=== PATIENT | female | born 1980 | race Caucasian/White ===

== ENCOUNTER 2021-08-05 08:28 | Outpatient (REF) | payer OTHER, SELFPAY ==
[2021-08-05 09:12] LABS: MANUAL DIFF FLAG NO
[2021-08-05 09:30] LABS: Basophils Percent Auto 0.6 % (0-2); Eosinophils Absolute Auto 0.2 X10*3/uL (0.0-0.4); Eosinophils Percent Auto 2.4 % (0-4); Hematocrit 42.1 % (37.0-47.0); Hemoglobin 13.3 g/dl (12.0-16.0); Imm Gran Abs Auto 0.02 X10*3/uL (0.00-0.03); Imm Gran Pct Auto 0.3 % (0.0-0.4); Lymphocytes Absolute Auto 2.4 X10*3/uL (1.2-4.9); Lymphocytes Percent Auto 34.7 % (20-40); Mean Corpuscular HGB Conc 31.6 g/dl (31.0-35.0); Mean Corpuscular Hemoglobin 28.7 pg (27.0-33.0); Mean Corpuscular Volume 90.9 fL (80.0-98.0); Monocytes Absolute Auto 0.4 X10*3/uL (0.1-1.2); Monocytes Percent Auto 5.1 % (2-11); Neutrophils Percent Auto 56.9 % (45-73); Platelet Count 284 X10*3/uL (160-400); Red Blood Count 4.63 X10*6/uL (4.20-5.50); Red Cell Distribution Width 13.4 % (11.0-16.0)
[2021-08-05 09:57] LABS: Alanine Aminotransferase 20 U/L (0-31); Aspartate Amino Transferase 18 U/L (5-31)
[2021-08-05 10:17] LABS: Ferritin 37 ng/mL (10-122)
[2021-08-05 10:24] LABS: Erythrocyte Sedimentation Rate 7 MM/HR (0-20)
[2021-08-05 10:46] LABS: Appearance Urine HAZY; Color Urine YELLOW; Glucose Urine UA NEG (NEG); Leukocyte Esterase Urine 3+ (NEG); Nitrite Urine NEG (NEG); Urine Blood 2+ (NEG); Urine Ketones NEG (NEG); Urine Protein NEG (NEG-TRACE)
[2021-08-05 11:22] LABS: Bacteria Urine 2+ /LPF; Squamous Epithelial Cell Urine 2+ /LPF
[2021-08-07 05:02] LABS: Lyme Abs Screen <0.90 index
[2021-08-08 15:03] LABS: Anti Nuclear Antibody Screen NEGATIVE (NEGATIVE)
[2021-08-08 19:06] LABS: Complement C3 154 mg/dL (83-193)
[2021-08-09 13:25] LABS: Neutrophil Cyto Ab Screen NEGATIVE (NEGATIVE)
[2021-08-10 13:31] LABS: Anti DNA DS Antibody 1 IU/mL; Antibody to SS-A Antigen <1.0 NEG AI (<1.0 NEG); Antibody to SS-B Antigen <1.0 NEG AI (<1.0 NEG)
[2021-08-11 10:36] LABS: IgA 154 mg/dL (47-310); IgG 977 mg/dL (600-1640); IgM 154 mg/dL (50-300)
== END 2021-08-05 08:29 | disposition home or self-care (01) ==
LOC: HO.LAB 08:28
PROVIDERS: PCP Family Medicine; Visit Provider Family Medicine
DX: L50.8 Other urticaria (principal)
CPT/HCPCS: 36415; 81001; 82595; 82728; 82784; 84450; 84460; 85025; 85652; 86036; 86037; 86038; 86039; 86160; 86225; 86235; 86334; 86617; 86618

== ENCOUNTER 2021-08-19 08:04 | Outpatient (REF) | payer OTHER, SELFPAY ==
[2021-08-23 19:26] LABS: Cryocrit None Detected; Cryoglobulin, Qual Negative (Negative)
== END 2021-08-19 08:05 | disposition home or self-care (01) ==
LOC: HO.LAB 08:04
PROVIDERS: PCP Family Medicine; Visit Provider Family Medicine
DX: L50.9 Urticaria, unspecified (principal)
CPT/HCPCS: 36415; 82595

== ENCOUNTER 2023-02-23 10:06 | Outpatient (REF) | payer OTHER, SELFPAY ==
--- NOTE | ~2023-02-23 | US_ITS ---
EXAMINATION: US THYROID CLINICAL INFORMATION: Thyromegaly COMPARISON: None available. TECHNIQUE: Linear transducer grayscale and color Doppler examination with attention to the region of the thyroid. FINDINGS: SIZE: Measurements of the thyroid lobes and nodules are given in sagittal, anteroposterior and transverse dimensions respectively. Right Thyroid Lobe: 5.3 x 1.3 x 2.2 cm, volume 8.4 mL. Parenchyma: The gland echotexture is homogeneous. Thyroid vascularity is increased. Left Thyroid Lobe: 5.4 x 1.5 x 2.5 cm, volume 10.1 mL. Parenchyma: The gland echotexture is homogeneous. Thyroid vascularity is increased. Isthmus: 0.41 cm in maximum AP dimension. Estimated total number of nodules greater than or equal to 1 cm: 1. Carpenter Inspector nodules are described as follows: 1. Location: Right inferior. Size: 0.7 x 0.5 x 0.4 cm, volume 0.06 mL. Nodule characteristics: Composition: Spongiform (0). Echogenicity: Anechoic (0). Shape: Not taller than wide (0). Margins: Smooth (0). Echogenic Foci: None (0). ACR TI-RADS total points: 0 ACR TI-RADS category: 1 2. Location: Left mid. Size: 1.8 x 0.84 x 1.4 cm, volume 1.1 mL. Nodule characteristics: Composition: Spongiform (0). Echogenicity: Anechoic (0). Shape: Not taller than wide (0). Margins: Smooth (0). Echogenic Foci: None (0). ACR TI-RADS total points: 0 ACR TI-RADS category: 1 NODES: No lymphadenopathy is seen in the tissue surrounding the thyroid gland. US/US thyroid IMPRESSION: 1. Bilateral thyroid nodules are seen, as detailed. 2. There is heterogeneous thyroid echotexture, which can be associated with thyroiditis. 3. There is a mild goiter. 4. Recommend continued thyroid ultrasound surveillance. ACR TI-RADS RECOMMENDATION REFERENCE: Ultrasound-guided fine-needle aspiration, followup ultrasound, no further follow up. * TR1 (0 point) and TR2 (2 points): No FNA or follow up. * TR3 (3 points): FNA if more than or equal to 2.5 cm in maximum dimension, followup ultrasound in 1, 3 and 5 years if 1.5 to 2.4 cm in maximum dimension. * TR4 (4-6 points): FNA if more than or equal to 1.5 cm in maximum dimension, followup ultrasound in 1, 2, 3 and 5 years if 1 to 1.4 cm in maximum dimension. * TR5 (more than or equal to 7 points): FNA if more than or equal to 1 cm in maximum dimension, followup ultrasound every year for 5 years if 0.5 to 0.9 cm in maximum dimension. * TR3, TR4 or TR5 nodules that are below the size threshold for followup receive no follow up.
== END 2023-02-23 10:07 | disposition home or self-care (01) ==
LOC: HO.HMGCX 10:06
PROVIDERS: PCP Family Medicine; Visit Provider Family Medicine
DX: E07.9 Disorder of thyroid, unspecified (principal)
CPT/HCPCS: 76536

== ENCOUNTER 2023-07-20 08:55 | Outpatient (REF) | payer OTHER, SELFPAY ==
--- NOTE | ~2023-07-20 | XR_ITS ---
EXAMINATION: CERVICAL SPINE 5 VIEWS CLINICAL INFORMATION: Right cervical pain radiating down the right arm. COMPARISON: None. TECHNIQUE: Frontal, odontoid, bilateral oblique and lateral views of the cervical spine are obtained. FINDINGS: Vertebral body heights and alignment are normal. The disc spaces are well-maintained. No acute fracture or spondylolisthesis is seen. The posterior elements are intact. The bilateral neural foramina are patent. Note is made that the left oblique view is somewhat over rotated. There is no prevertebral soft tissue swelling. The dens and C7-T1 interface are normal. XR/XR cervical spine 4V IMPRESSION: Negative examination.
== END 2023-07-20 08:56 | disposition home or self-care (01) ==
LOC: HO.XRAY 08:55
PROVIDERS: PCP Family Medicine; Visit Provider Family Medicine
DX: M54.2 Cervicalgia (principal)
CPT/HCPCS: 72050

== ENCOUNTER 2024-02-29 09:46 | Outpatient (REF) | payer OTHER, SELFPAY ==
--- NOTE | ~2024-02-29 | US_ITS ---
EXAMINATION: US THYROID CLINICAL INFORMATION: 1 year follow-up of multinodular goiter. COMPARISON: Ultrasound soft tissue head/neck thyroid dated 02/23/2023. TECHNIQUE: Linear transducer grayscale and color Doppler examination with attention to the region of the thyroid. FINDINGS: SIZE: Measurements of the thyroid lobes and nodules are given in sagittal, anteroposterior and transverse dimensions respectively. Right Thyroid Lobe: 6.0 x 1.1 x 2.1 cm, volume 7.3 mL. Previously 5.3 x 1.3 x 2.2 cm, volume 8.4 mL. Parenchyma: The gland echotexture is homogeneous. Thyroid vascularity is normal. Left Thyroid Lobe: 5.5 x 1.3 x 2.5 cm, volume 9.4 mL. Previously 5.4 x 1.5 x 2.5 cm, volume 10.1 mL. Parenchyma: The gland echotexture is homogeneous. Thyroid vascularity is normal. Isthmus: 0.3 cm in maximum AP dimension. Previously 0.4 cm. Estimated total number of nodules greater than or equal to 1 cm: 1. Digital Analyst nodules are described as follows: 1. Location: Right inferior. Size: 0.6 x 0.4 x 0.4 cm, volume 0.06 mL. Previously: 0.7 x 0.5 x 0.4 cm, volume 0.06 mL. Nodule characteristics: Composition: Solid/almost completely solid (2). Echogenicity: Hypoechoic (2). Shape: Not taller than wide (0). Margins: Smooth (0). Echogenic Foci: None (0). ACR TI-RADS total points: 4 ACR TI-RADS category: 4 Significant change in size (>/= 20% in 2 dimensions and minimal increase of 2 mm or 50% or greater increase in volume): No Change in features: Not with accounting for differences in interobserver variability, as imaging findings appear similar to prior. 2. Location: Left mid inferior. Size: 1.8 x 0.9 x 1.3 cm, volume 1.1 mL. Previously: 1.8 x 0.8 x 1.4 cm, volume 1.1 mL. Nodule characteristics: Composition: Spongiform (0). ACR TI-RADS total points: 0 ACR TI-RADS category: 1 Significant change in size (>/= 20% in 2 dimensions and minimal increase of 2 mm or 50% or greater increase in volume): No Change in features: No NODES: No lymphadenopathy is seen in the tissue surrounding the thyroid gland. US/US thyroid IMPRESSION: Few thyroid nodules as detailed above which do not meet criteria for follow-up.. ACR TI-RADS RECOMMENDATION REFERENCE: Ultrasound-guided fine-needle aspiration, follow up ultrasound, no further followup. * TR1 (0 point) and TR2 (2 points): No FNA or followup * TR3 (3 points): FNA if more than or equal to 2.5 cm in maximum dimension, follow up ultrasound in 1, 3 and 5 years if 1.5 to 2.4 cm in maximum dimension. * TR4 (4-6 points): FNA if more than or equal to 1.5 cm in maximum dimension, follow up ultrasound in 1, 2, 3 and 5 years if 1 to 1.4 cm in maximum dimension. * TR5 (more than or equal to 7 points): FNA if more than or equal to 1 cm in maximum dimension, follow up ultrasound every year for 5 years if 0.5 to 0.9 cm in maximum dimension. * TR3, TR4 or TR5 nodules that are below the size threshold for follow up receive no followup. Electronically signed by: Amparo Leyva MD 03/13/2024 05:18 PM EDT
== END 2024-02-29 09:47 | disposition home or self-care (01) ==
LOC: HO.HMGCX 09:46
PROVIDERS: PCP Family Medicine; Visit Provider Family Medicine
DX: E04.2 Nontoxic multinodular goiter (principal)
CPT/HCPCS: 76536

== ENCOUNTER 2024-07-18 08:21 | Outpatient (REF) | payer OTHER, SELFPAY ==
[2024-07-18 08:35] LABS: MANUAL DIFF FLAG NO
[2024-07-18 08:55] LABS: Basophils Absolute Auto 0.1 X10*3/uL (0.0-0.2); Basophils Percent Auto 0.9 % (0-2); Eosinophils Absolute Auto 0.3 X10*3/uL (0.0-0.4); Eosinophils Percent Auto 4.6 % (0-4); Hematocrit 39.9 % (37.0-47.0); Imm Gran Abs Auto 0.02 X10*3/uL (0.00-0.03); Imm Gran Pct Auto 0.3 % (0.0-0.4); Lymphocytes Absolute Auto 1.9 X10*3/uL (1.2-4.9); Lymphocytes Percent Auto 27.8 % (20-40); Mean Corpuscular HGB Conc 32.6 g/dl (31.0-35.0); Mean Corpuscular Hemoglobin 28.7 pg (27.0-33.0); Mean Corpuscular Volume 88.1 fL (80.0-98.0); Mean Platelet Volume 10.1 fL (9.4-12.3); Monocytes Absolute Auto 0.4 X10*3/uL (0.1-1.2); Monocytes Percent Auto 6.2 % (2-11); Neutrophils Absolute Auto 4.1 x10*3/uL (2.0-8.3); Neutrophils Percent Auto 60.2 % (45-73); Platelet Count 237 X10*3/uL (160-400); Red Blood Count 4.53 X10*6/uL (4.20-5.50); Red Cell Distribution Width 13.2 % (11.0-16.0); White Blood Count 6.8 X10*3/uL (4.8-10.8)
[2024-07-18 09:42] LABS: Alanine Aminotransferase 24 U/L (0-31); Albumin Level 4.1 g/dL (3.5-5.0); Alkaline Phosphatase 54 U/L (39-117); Anion Gap 9 (12-20); Aspartate Amino Transferase 30 U/L (5-31); Bilirubin Total 0.5 mg/dL (0.0-1.0); Blood Urea Nitrogen 13 mg/dL (9-16); Calcium 9.2 mg/dL (8.4-10.2); Carbon Dioxide 28 mmol/L (22-29); Chloride 108 mmol/L (96-108); Cholesterol 161 mg/dL (<200); Estimated Glomerular Filt Rate > 60; Glucose Fasting 92 mg/dL (60-99); HDL Cholesterol 36 mg/dL (>40); LDL Cholesterol Calculated 96 mg/dL (<100); Potassium 4.1 mmol/L (3.3-5.1); Sodium 141 mmol/L (135-145); Total Protein 7.1 g/dL (6.5-8.0); Triglycerides 149 mg/dL (<150)
[2024-07-18 09:56] LABS: Thyroid Stimulating Hormone 1.05 uIU/mL (0.32-4.0)
== END 2024-07-18 08:22 | disposition home or self-care (01) ==
LOC: HO.LAB 08:21
PROVIDERS: PCP Family Medicine; Visit Provider Family Medicine
DX: E04.2 Nontoxic multinodular goiter (principal); Z82.49 Family history of ischemic heart disease and other diseases of the circulatory system; Z13.6 Encounter for screening for cardiovascular disorders
CPT/HCPCS: 36415; 80053; 80061; 84443; 85025

== ENCOUNTER 2025-05-08 10:54 | Outpatient (AMB) | payer OTHER, SELFPAY ==
--- NOTE | 2025-05-08 07:54 | MHC.PC.OV ---
Vital Signs 05/08/25 11:12 Height 5 ft 6.65 in Weight 93.894 kg BMI 32.8 BP 108/78 Blood Pressure Location Lt brachial Position Sitting Pulse 85 Pulse Source Pulse Oximeter Temp 98.7 F Temp Source Temporal Artery Scan Pulse Oximetry (%) 97 Oxygen Delivery Method Room Air Intake Visit Reasons: 6 MO F/UP - GINNY PT Integrity Consultant Required: No Accompanied by: Self / Same As Patient Allergies codeine (CODEINE) Allergy (Unknown, Verified 05/08/25 11:01) UNKNOWN moderna 3rd booster Allergy (Severe, Uncoded 05/08/25 11:08) Hives Codeine Phosphate Allergy (Unknown, Uncoded 05/01/16 00:00) nausea and vomiting vitamin Allergy (Unknown, Uncoded 05/01/16 00:00) heart palpitations Medication List - Last Reconciled 05/08/25 by BRYAN Bobby cetirizine (Zyrtec) 10 mg PO DAILY PRN cholecalciferol (vitamin D3) 25 mcg PO DAILY famotidine 20 mg PO DAILY magnesium oxide 200 mg PO DAILY sertraline 25 mg PO DAILY Ang's wort 300 mg PO DAILY tizanidine 4 mg PO TID PRN Tobacco use date assessed: 05/08/25 Dental Screening Dental Screen Date: 05/08/25 Did you have a dental visit in the last 12 months?: Yes Did you have a dental problem in the last 6 months where you did not have access to dental care?: No HPI HPI Comments History of Present Illness Details 44-year-old female with history of cervicothoracic scoliosis, cervical radiculopathy, heterozygous factor 5 Leiden, GERD, perimenopausal symptoms presenting to the office today for management of chronic conditions and to establish care. Last PCP was Dr. Sarabia, last seen 11/2024 for annual physical exam Heterozygous factor 5 Leiden-not on any anticoagulation. No personal or family history of clots GERD-primarily managed with diet though does occasionally use famotidine as needed. Symptoms were most bothersome during and immediate . Anxiety-along with other perimenopausal symptoms including hot flashes, insomnia your now well managed with sertraline 25 mg daily. No HRT. Concerns: Right-sided neck pain to the right shoulder radiating into the right upper chest. Describes a tightness that is intermittent and has been ongoing for over a year. She does also have scoliosis and has been going to a chiropractor for many months with limited relief of symptoms. She denies any weakness or paresthesias related to the cervical spine but does have right-sided carpal tunnel syndrome. Using ibuprofen and Tylenol. She has a family history of MS and is concerned about this but denies any specific symptoms consistent with MS at this time. Right-hand dominant Health Maintenance: Dr. Donis, [facility] PATIENT CARE NURSING ASSISTANT- Pap UTD, follows annually Due mammo- [facility] glaucoma- Dr. Cathleen Ballard eye, annually- corrective lenses, no contacts Dental exams UTD ROS: See HPI s EXAM: Constitutional - Awake and Alert, No apparent distress Eyes - PERRL Cardiovascular - S1S2, RRR, No edema Respiratory - Normal lung expansion, Normal respiratory effort, No respiratory distress, CTA bilaterally Extremities - no calf tenderness bilaterally, no swelling MSK-no midline tenderness to palpation though mild cervicothoracic right-sided deviation noted without any overlying tenderness. There is right-sided paraspinal tenderness to palpation into the right upper trapezius. 5/5 strength in the bilateral upper extremities, sensation intact. There is full range of motion of the right shoulder neck Skin - Warm/Dry Neurological - Alert & oriented x3 Psychological - Appropriate affect [facility] Medical History (Updated 05/08/25 @ 11:51 by BRYAN Bobby) Cervical radiculopathy Perimenopause Heterozygous factor V Leiden mutation GERD (gastroesophageal reflux disease) Surgical History (Updated 05/08/25 @ 11:43 by BRYAN Bobby) H/O section S/P cholecystectomy S/P appendectomy History of colonoscopy (~03/06/25) Family History (Updated 05/08/25 @ 11:41 by BRYAN Bobby) Maternal Grandfather Cancer Sister Tubular adenoma, Onset Age: 45 Father Multiple sclerosis, Onset Age: 70 Mother Glaucoma Social History Housing: House Patient Tobacco Use Status: Never used Tobacco e-Cigarette/Vaping Use: Never Used service: No Current occupational status: employed Current occupation: [employer] Cognitive needs: No Hearing needs: No Vision needs: No Questionnaire PHQ-9 Over the last 2 weeks, how often have you been bothered by any of the following problems? 1. Little interest or pleasure in doing things: not at all 2. Feeling down, depressed, or hopeless: not at all 3. Trouble falling or staying asleep, or sleeping too much: not at all 4. Feeling tired or having little energy: not at all 5. Poor appetite or overeating: not at all 6. Feeling bad about yourself - or that you are a failure or have let yourself or your family down: not at all 7. Trouble concentrating on things, such as reading the newspaper or watching television: not at all 8. Moving or speaking so slowly that other people could have noticed. Or the opposite - being so fidgety or restless that you have been moving around a lot more than usual: not at all 9. Thoughts that you would be better off or of hurting yourself in some way: not at all Total score: 0 Source: Developed by Drs. Harsh Verdugo, Minerva Clement, Nik Aquino and colleagues, with an educational jose guadalupe from [employer]. Thrive Questionnaire Date Thrive assessed: 05/08/25 I am a: Patient Within the past 12 months, did the food you bought not last and you didn't have the money to get more?: Never true Within the past 12 months, did you worry whether your food would run out before you got money to buy more?: Never true Do you have trouble paying for medicines?: No Do you have trouble getting transportation to medical appointments?: No Do you have trouble paying your heating and electricity bill?: No Do you have trouble taking care of your child, family member or friend?: No Do you have trouble with day-to-day activities such as bathing, preparing meals, shopping, managing finances, etc.?: No Are you currently unemployed and looking for a job?: No Are you interested in more education?: No THRIVE Score: 0 AUDIT C Alcohol Use Questionnaire (AUDIT-C) 1. How often do you have a drink containing alcohol?: Never 3. How often do you have six or more drinks on one occasion?: Never Total Score: 0 RICHAR-7 AMB Questionnaire RICHAR-7 Date RICHAR - 7 assessed: 05/08/25 Feeling nervous, anxious, or on edge: 0 = Not at all Not being able to stop or control worryin = Not at all Worrying too much about different things: 0 = Not at all Trouble relaxin = Not at all Being so restless that it is hard to sit still: 0 = Not at all Becoming easily annoyed or irritable: 0 = Not at all Feeling afraid as if something awful might happen: 0 = Not at all Total RCIHAR-7 score (0-4 normal; 5-9 mild; 10-14 moderate; 15-21 severe): 0 Source: Developed by Drs. Harsh Verdugo, Minerva Clement, Nik Aquino and colleagues, with an educational jose guadalupe from [employer]. Physical exam (Primary Care) Vital Signs: Last Vital Signs Temp 98.7 F 05/08/25 11:12 Pulse 85 05/08/25 11:12 BP 108/78 05/08/25 11:12 Pulse Ox 97 05/08/25 11:12 Oxygen Delivery Method Room Air 05/08/25 11:12 BMI result Body Mass Index 32.8 Tobacco/Smoking Status: Tobacco use Status Tobacco use date assessed 05/08/25 05/08/25 07:58 Patient Tobacco Use Status Never used Tobacco 05/08/25 07:58 e-Cigarette/Vaping Use Never Used 05/08/25 07:58 PHQ-9: PHQ-9 Score PHQ-9: Total score 0 05/08/25 11:34 Thrive Assessment: Date of Thrive Assessment Date Thrive assessed 05/08/25 05/08/25 07:58 Coding Level of Care Code New Pt Level 4 (64381) Complex visit Add On G2211 Diagnoses GERD (gastroesophageal reflux disease) K21.9 Perimenopause N95.1 Heterozygous factor V Leiden mutation D68.51 Cervical radiculopathy M54.12 Assessment & Plan Assessment & Plan (1) GERD (gastroesophageal reflux disease): Comment: Improved with dietary On famotidine prn if using ibuprofen Code(s): K21.9 - Gastro-esophageal reflux disease without esophagitis Category: Medical Plan: Can continue famotidine as needed, avoid triggering foods. (2) Perimenopause: Code(s): N95.1 - Menopausal and female climacteric states Category: Medical Plan: Associated symptoms well-controlled with sertraline 25 mg daily and we will continue this as prescribed by senior office assistant (3) Heterozygous factor V Leiden mutation: Code(s): D68.51 - Activated protein C resistance Category: Medical Plan: No indication for anticoagulation at this time. (4) Cervical radiculopathy: Code(s): M54.12 - Radiculopathy, cervical region Category: Medical Plan: With associated scoliosis. Referral placed to physical therapy as well as to Orthopedics. Given prescription for tizanidine to use as needed for spasm. Can also continue ibuprofen and Tylenol as well as topical analgesics and ice Plan Follow-up in the office for annual physical exam with labs completed several days prior to visit Orders: Orders XR cervical spine 3V Today M41.9 - Scoliosis, unspecified, M54.12 - Radiculopathy, cervical region Basic Metabolic Panel 9 Months M41.9 - Scoliosis, unspecified, M54.12 - Radiculopathy, cervical region Lipid Panel 9 Months M41.9 - Scoliosis, unspecified, M54.12 - Radiculopathy, cervical region Liver Panel 9 Months M41.9 - Scoliosis, unspecified, M54.12 - Radiculopathy, cervical region TSH reflex Free T4 9 Months M41.9 - Scoliosis, unspecified, M54.12 - Radiculopathy, cervical region PT Evaluation and Treatment Today M41.9 - Scoliosis, unspecified, M54.12 - Radiculopathy, cervical region XR thoracic spine 3V Today M41.9 - Scoliosis, unspecified, M54.12 - Radiculopathy, cervical region Complete Blood Count Auto Diff 9 Months M41.9 - Scoliosis, unspecified, M54.12 - Radiculopathy, cervical region Hemoglobin A1c 9 Months M41.9 - Scoliosis, unspecified, M54.12 - Radiculopathy, cervical region Referrals Orthopedics Referral M41.9 - Scoliosis, unspecified, M54.12 - Radiculopathy, cervical region Medications: New tizanidine 4 mg PO TID PRN 90 caps 0RF muscle spasticity
[2025-05-08 11:12] VITALS: BP 108/78; PULSE 85; TEMP 37.1; O2SAT 97; BMI 32.8
== END 2025-05-08 12:00 | disposition home or self-care (01) ==
PROVIDERS: PCP Physician Assistant; Visit Provider Physician Assistant
DX: K21.9 Gastro-esophageal reflux disease without esophagitis (principal); N95.1 Menopausal and female climacteric states; D68.51 Activated protein C resistance; M54.12 Radiculopathy, cervical region